=== PATIENT | female | born 1985 ===

== ENCOUNTER 2021-07-04 07:45 | Emergency (ER) | payer MEDICAID ==
[2021-07-04 07:54] VITALS: BP 119/77
--- NOTE | 2021-07-04 08:20 | Emergency Department Report ---
ED Back Pain/Injury HPI - General Chief Complaint: Back Pain/Injury Stated Complaint: BACK PAIN Time Seen by Provider: 07/04/21 08:03 Source: patient Limitations: No Limitations - History of Present Illness Initial Comments: This is a 36-year-old female nontoxic, well nourished in appearance, no acute signs of distress presents to the ED with c/o of lower back pain that started yesterday. Patient stated that the last night she was moving furniture with her and developed this pain that worsened this morning. Patient denies any radiation of pain. Patient denies taking any onad-ixk-iclzzgy medications. Patient denies any trauma. Denies any bladder or bowel instability. Patient denies any urinary symptoms. Denies any fever, chills, nausea, vomiting, headache, stiff neck, chest pain or shortness of breath. Patient denies any numbness or tingling. Denies any allergies. Denies significant past medical history. MD Complaint: back pain -: Last night Similar Symptoms Previously: Yes Place: home Radiation: none Severity: mild Severity scale (0 -10): 3 Quality: aching Consistency: intermittent Improves With: immobilization, sitting upright Worsens With: movement, walking Context: while lifting, turning/twisting Associated Symptoms: denies other symptoms. denies: confusion, weakness, chest pain, numbness, difficulty walking, cough, difficulty urinating, diaphoresis, incontinence, fever/chills, constipation, headaches, abdominal pain, loss of appetite, malaise, nausea/vomiting, rash, seizure, shortness of breath, syncope - Related Data Allergies Allergy/AdvReac Type Severity Reaction Status Date / Time iodine Allergy Unknown Verified 07/04/21 07:51 ED Review of Systems ROS: Stated complaint: BACK PAIN Other details as noted in HPI Comment: All other systems reviewed and negative Constitutional: denies: chills, fever Eyes: denies: eye pain, eye discharge, vision change ENT: denies: ear pain, throat pain Respiratory: denies: cough, shortness of breath, wheezing Cardiovascular: denies: chest pain, palpitations Endocrine: no symptoms reported Gastrointestinal: denies: abdominal pain, nausea, diarrhea Genitourinary: denies: urgency, dysuria, discharge Musculoskeletal: back pain. denies: joint swelling, arthralgia Skin: denies: rash, lesions Neurological: denies: headache, weakness, paresthesias Psychiatric: denies: anxiety, depression Hematological/Lymphatic: denies: easy bleeding, easy bruising ED Past Medical Hx - Past Medical History Previous Medical History?: No - Surgical History Past Surgical History?: No ED Physical Exam - General Limitations: No Limitations General appearance: alert, in no apparent distress - Head Head exam: Present: atraumatic, normocephalic - Eye Eye exam: Present: normal appearance - Neck Neck exam: Present: normal inspection, full ROM. Absent: lymphadenopathy - Respiratory Respiratory exam: Absent: respiratory distress - Cardiovascular Cardiovascular Exam: Present: regular rate - GI/Abdominal GI/Abdominal exam: Present: soft. Absent: distended, tenderness - Extremities Exam Extremities exam: Present: normal inspection, full ROM, normal capillary refill. Absent: tenderness - Back Exam Back exam: Present: normal inspection, full ROM, paraspinal tenderness (LEFT SIDE LUMBAR PARASPINAL). Absent: tenderness, CVA tenderness (R), CVA tenderness (L), muscle spasm, vertebral tenderness, rash noted - Expanded Back Exam Expanded Back exam: Absent: saddle anesthesia Back exam: Negative Straight Leg Raising: Left, Right 1 - pain here - Neurological Exam Neurological exam: Present: alert, oriented X3, normal gait - Psychiatric Psychiatric exam: Present: normal affect, normal mood - Skin Skin exam: Present: warm, dry, intact, normal color. Absent: rash ED Course Vital Signs 07/04/21 07:51 Temperature 97.8 F Pulse Rate 71 Respiratory 18 Rate Blood Pressure 119/77 O2 Sat by Pulse 93 Oximetry - Reevaluation(s) Reevaluation #1: 07/04/21 08:22 Patient is speaking in full sentences with no signs of distress noted. ED Medical Decision Making - Medical Decision Making This is a 36-year-old female that presents with low back strain. Patient is s table was examined by me. There is no spinal tenderness. There is no cauda equina syndrome during examination. No bladder or bowel instability. Patient refused taking anything kivr-eon-hjgevmo or any medication to be provided in the ER due to her yarsanism purposes. I was unable to reevaluate after treatment to see if symptoms would improve due to refusing pain medication or any treatment. Patient was educated on applying heat for a back strain as well as RICE therapy. Patient does have a back brace currently on. As I went to get heat pads for back and I returned, patient was not there. Patient ELOPED as from RN telling me this. This chart is dictated with using [employer] Critical care attestation.: If time is entered above; I have spent that time in minutes in the direct care of this critically ill patient, excluding procedure time. ED Disposition Clinical Impression: Low back strain Qualifiers: Encounter type: initial encounter Qualified Code(s): S39.012A - Strain of muscle, fascia and tendon of lower back, initial encounter Disposition: 07 LEFT AWOL/ELOPED Is pt being admited?: No Does the pt Need Aspirin: No Condition: Undetermined Instructions: Muscle Strain Additional Instructions: Follow-up with your primary care doctor in 3-5 days or if symptoms worsen such as bladder or bowel stability, chest pain, short of breath, numbness or tingling sensation in extremities, headache, dizziness, visual changes, nausea vomiting, or abdominal pain, return back to emergency room as was possible. No physical activity that extremity until cleared by orthopedic doctor Referrals: PAYAL CURRY MD [Primary Care Provider] - 3-5 Days NIDIA MCKEON MD [Staff Physician] - 3-5 Days Time of Disposition: 08:23
== END 2021-07-04 09:49 | disposition left against medical advice (07) ==
LOC: ED 07:45
DX: S39.012A Strain of muscle, fascia and tendon of lower back, initial encounter (principal); Z88.6 Allergy status to analgesic agent; Z79.899 Other long term (current) drug therapy; X58.XXXA Exposure to other specified factors, initial encounter; Y93.89 Activity, other specified; Y92.89 Other specified places as the place of occurrence of the external cause; Y99.8 Other external cause status
CPT/HCPCS: 99281

== ENCOUNTER 2021-10-29 16:17 | Emergency (ER) | payer MEDICAID ==
[2021-10-29 17:02] VITALS: BP 117/73
--- NOTE | 2021-10-29 17:22 | Emergency Department Report ---
ED General Adult HPI - General Chief complaint: Chest Pain Stated complaint: I just want to make sure that I do not have pneumonia Time Seen by Provider: 10/29/21 17:09 Source: patient, RN notes reviewed Mode of arrival: Ambulatory Limitations: No Limitations - History of Present Illness Initial comments: The patient was evaluated in the emergency department for symptoms described in the history of present illness. He/she was evaluated in the context of the global COVID-19 pandemic, which necessitated consideration that the patient might be at risk for infection with the virus that causes COVID-19. Institutional protocols and algorithms that pertain to the evaluation of patients at risk for COVID-19 are in a state of rapid change based on info rmation released by regulatory bodies including the CDC and federal and state organizations. These policies and algorithms were followed during the patient's care in the emergency department. Please note that these policies, procedures and recommendations changed on a rapid basis. During the history and physical examination I am chaperoned by endocrinology specialist Reji Payne The patient is a 36-year-old female with a history of body mass index of 37, who is right-hand dominant, who reports that she is not . She also reports that she has not delivered her given in the past 6 weeks, denies oral contraceptive use, travel, surgery, immobilization, leg pain or leg swelling, DVT/PE risk factors. The patient presents today with complaints of central and left-sided chest pain, without associated vomiting, diaphoresis or exertional shortness of breath. Goes to her left neck She denies additional injuries and complaints. The patient does report that she had endoscopic evaluation in June of last year, which she believes was unremarkable. She also reports that she recently started a vegan diet, and feels like that may be contributing to her symptoms. On review of systems, she endorses that her /bed partner states that she snores quite a bit at night. She has not been formally tested for sleep apnea. -: Gradual, days(s) Location: chest Quality: aching Consistency: intermittent Improves with: none Worsens with: none - Related Data Allergies Allergy/AdvReac Type Severity Reaction Status Date / Time iodine Allergy Unknown Verified 07/04/21 07:51 ED Review of Systems ROS: Stated complaint: CHEST PAIN X2 DAYS Other details as noted in HPI Constitutional: denies: fever Eyes: denies: vision change ENT: denies: epistaxis Respiratory: denies: cough, wheezing Cardiovascular: chest pain, palpitations (Predominantly at night) Gastrointestinal: denies: nausea, vomiting Genitourinary: denies: dysuria Neurological: denies: weakness Hematological/Lymphatic: denies: easy bleeding ED Physical Exam - General Limitations: No Limitations General appearance: alert, in no apparent distress, obese - Head Head exam: Present: atraumatic, normocephalic - Eye Eye exam: Present: normal appearance, EOMI. Absent: nystagmus - ENT ENT exam: Present: normal exam, normal orophraynx, mucous membranes moist, n ormal external ear exam - Neck Neck exam: Present: normal inspection, full ROM. Absent: tenderness, meningismus - Respiratory Respiratory exam: Present: normal lung sounds bilaterally, chest wall tenderness (There is minimal reproducible central, left-sided anterior chest wall tenderness). Absent: respiratory distress, wheezes, rales, rhonchi, stridor - Cardiovascular Cardiovascular Exam: Present: regular rate, normal rhythm, normal heart sounds. Absent: bradycardia, tachycardia, irregular rhythm, systolic murmur, diastolic murmur, rubs, gallop - GI/Abdominal GI/Abdominal exam: Present: soft. Absent: distended, tenderness, guarding, rebound, rigid, pulsatile mass - Extremities Exam Extremities exam: Present: normal inspection, full ROM, other (2+ pulses noted in the bilateral upper and lower extremities. There is no palpable cord. negative Homans sign. Muscular compartments are soft. The pelvis is stable.). Absent: pedal edema, calf tenderness - Back Exam Back exam: Present: normal inspection, full ROM. Absent: tenderness, CVA tenderness (R), CVA tenderness (L), paraspinal tenderness, vertebral tenderness - Neurological Exam Neurological exam: Present: alert, oriented X3, normal gait, other (No facial droop. Tongue midline. Extraocular movements intact bilaterally. Facial sensation intact to light touch in V1, V2, V3 distribution bilaterally. 5 and a 5 strength in 4 extremities. Sensation intact to light touch in 4 extremities.). Absent: motor sensory deficit - Psychiatric Psychiatric exam: Present: normal affect, normal mood - Skin Skin exam: Present: warm, dry, intact, normal color. Absent: rash ED Course Vital Signs 10/29/21 16:57 Temperature 98.2 F Pulse Rate 75 Respiratory 18 Rate Blood Pressure 117/73 O2 Sat by Pulse 96 Oximetry - Reevaluation(s) Reevaluation #1: 10/29/21 17:32 Differential diagnosis, include but not limited to: GERD, gastritis, hiatal hernia, costochondritis, coronary artery disease, pneumonia, pneumothorax Assessment and plan: 36-year-old female, who is not currently tachycardic, tachypneic or hypoxic, who denies DVT and pulmonary embolism risk factors, who is low risk by Wells criteria for pulmonary embolism, PERC negative EKG unremarkable x1 troponin negative x x1 in the context of 3 to 4 days of symptoms Patient has equal pulses in the upper and lower extremities, no pulsatile abdominal mass, and an unremarkable x-ray of the chest, therefore, aortic d isease is very unlikely. Patient at low risk for major adverse cardiac event as per heart score. Laboratory studies physical exam unremarkable. Patient declined pain medication. Supportive and conservative care, outpatient follow-up. Return precautions reviewed Patient may have a component of undiagnosed obstructive sleep apnea. Diet lifestyle modifications, outpatient follow-up for sleep study 10/29/21 18:34 Laboratory studies unremarkable. Chest x-ray unremarkable. Patient resting co mfortably in stretcher and in no acute distress. ED Medical Decision Making - Lab Data Result diagrams: 10/29/21 17:31 10/29/21 17:31 Vital Signs 10/29/21 16:57 Temperature 98.2 F Pulse Rate 75 Respiratory 18 Rate Blood Pressure 117/73 O2 Sat by Pulse 96 Oximetry Lab Results 10/29/21 10/29/21 10/29/21 Range/Units 17:31 17:31 17:31 WBC 5.5 (4.5-11.0) K/mm3 RBC 4.31 (3.65-5.03) M/mm3 Hgb 12.2 (10.1-14.3) gm/dl Hct 36.9 (30.3-42.9) % MCV 86 (79-97) fl MCH 28 (28-32) pg MCHC 33 (30-34) % RDW 15.3 H (13.2-15.2) % Plt Count 237 (140-440) K/mm3 Sodium 141 (137-145) mmol/L Potassium 3.9 (3.6-5.0) mmol/L Chloride 106.9 (98-107) mmol/L Carbon Dioxide 23 (22-30) mmol/L Anion Gap 15 mmol/L BUN 4 L (7-17) mg/dL Creatinine 0.7 (0.6-1.2) mg/dL Estimated GFR > 60 ml/min BUN/Creatinine Ratio 6 % Glucose 88 (65-100) mg/dL Calcium 8.8 (8.4-10.2) mg/dL Magnesium 1.90 (1.7-2.3) mg/dL Total Creatine Kinase 334 H (30-135) units/L Troponin T < 0.010 (0.00-0.029) ng/mL HCG, Quant < 2 (0-4) mIU/mL - EKG Data -: EKG Interpreted by Me EKG shows normal: sinus rhythm Rate: normal - EKG Data When compared to previous EKG there are: previous EKG unavailable 10/29/21 17:29 The EKG is interpreted at 17: 10 Sinus rhythm, rate 72 bpm. Normal axis, normal intervals, unremarkable EKG, not a STEMI - Radiology Data Radiology results: pending, report reviewed, image reviewed interpreted by me: 2 view x-ray of the chest, interpreted by myself, clear lungs, no infiltrate, no pneumothorax CHEST 2 VIEWS INDICATION / CLINICAL INFORMATION: left sided cp. COMPARISON: None available. FINDINGS: SUPPORT DEVICES: None. HEART / MEDIASTINUM: No significant abnormality. LUNGS / PLEURA: No significant pulmonary or pleural abnormality. No pneumothorax. ADDITIONAL FINDINGS: No significant additional findings. IMPRESSION: 1. No acute findings. Signer Name: River Prieto MD Signed: 10/29/2021 6:08 PM Workstation Name: [id number] Critical care attestation.: If time is entered above; I have spent that time in minutes in the direct care of this critically ill patient, excluding procedure time. ED Disposition Clinical Impression: Chest pain, Body mass index 37.0-37.9, adult Disposition: 01 HOME / SELF CARE / HOMELESS Is pt being admited?: No Does the pt Need Aspirin: No Condition: Good Instructions: Nonspecific Chest Pain, Adult, Obesity, Adult, [id number] Additional Instructions: Patient may take toat-stt-zruxkpz acetaminophen as needed for physical pain, alternating with wwte-viv-wavysvv Pepcid or Protonix as needed for physical pain. Avoid consumption of heavy and spicy foods, tobacco, alcohol and smoke products. Patient may also alternate ice packs and heat packs as needed for physical pain. Recommended aggressive weight loss, exercise as tolerated, consumption of fiber, vegetables, lean protein and plenty of water. We also recommend follow-up with your primary care doctor or shrinking machine operator within the next 5 to 7 days. Patient may have a component of undiagnosed obstructive sleep apnea, so we recommend follow-up with the account general manager, such as Dr. Bradshaw, for sleep study evaluation within the next month. Please return to the emergency room right away with new pain, worsened pain, migration of pain, projectile vomiting, change in mental status, confusion, inability tolerate liquid feeds, new, worsened or different symptoms not present on the initial emergency room evaluation Referrals: BO BRADSHAW MD [Staff Physician] - 3-5 Days [facility] [Provider Group] - 3-5 Days [facility] [Provider Group] - 3-5 Days Heart Score - HEART Score History: Slightly suspicious EKG: Normal Age: < 45 Risk factors: 1-2 risk factors Troponin: < normal limit HEART Score: 1 - EKG Read Time Time EKG Completed: 17:10 EKG Read Time: 17:10 - Critical Actions Critical Actions: 0-3 pts:0.9-1.7%risk of adverse cardiac event.Candidate for discharge
[2021-10-29 17:49] LABS: Hematocrit 36.9 % (30.3-42.9); Hemoglobin 12.2 gm/dl (10.1-14.3); Mean Corpuscular HGB Conc 33 % (30-34); Mean Corpuscular Volume 86 fl (79-97); Platelet Count 237 K/mm3 (140-440); Red Blood Count 4.31 M/mm3 (3.65-5.03); Red Cell Distribution Width 15.3 % (13.2-15.2)
[2021-10-29 18:13] LABS: Blood Urea Nitrogen 4 mg/dL (7-17); Calcium 8.8 mg/dL (8.4-10.2); Hemolysis Index 3
[2021-10-29 18:18] LABS: BUN/Creatinine Ratio 6
--- NOTE | 2021-10-29 19:12 | XRay Report ---
CHEST 2 VIEWS INDICATION / CLINICAL INFORMATION: left sided cp. COMPARISON: None available. FINDINGS: SUPPORT DEVICES: None. HEART / MEDIASTINUM: No significant abnormality. LUNGS / PLEURA: No significant pulmonary or pleural abnormality. No pneumothorax. ADDITIONAL FINDINGS: No significant additional findings. IMPRESSION: 1. No acute findings. Signer Name: River Prieto MD Signed: 10/29/2021 7:08 PM Workstation Name: [id number]
--- NOTE | 2021-10-30 10:04 | Electrocardiograph Report ---
[facility], [place] Test Date: 2021-10-29 Test Time: 17:10:03 Pat Name: ANALY SUE Department: Room: Gender: F Front Office Attendant: VAL : 1985 Requested By: ALKA PADILLA Order Number: [id number] Reading MD: Luis Enrique Lara Measurements Intervals [place] Rate: 72 P: 55 HI: 162 QRS: 22 QRSD: 87 T: 27 QT: 373 QTc: 408 Interpretive Statements Sinus rhythm No previous ECG available for comparison Electronically Signed On 10-30-2021 10:04:23 EST by Luis Enrique Lara
== END 2021-10-30 09:44 | disposition home or self-care (01) ==
LOC: ED 16:17
DX: R07.89 Other chest pain (principal); Z68.37 Body mass index [BMI] 37.0-37.9, adult
CPT/HCPCS: 36415; 71046; 80048; 82550; 83735; 84484; 84702; 85027; 93005; 93010; 99283